=== PATIENT | female | born 1995 | race Caucasian/White ===

== ENCOUNTER 2016-11-03 18:30 | Emergency (ER) | payer SELFPAY ==
--- NOTE | 2016-11-03 18:33 | PDOC ---
History of Present Illness - General Chief Complaint: Sore Throat Stated Complaint: SORE THROAT, CAIN EAR PAIN, NASAL CONGESTION Time Seen by Provider: 11/03/16 18:33 - History of Present Illness Initial Comments: 11/03/16 18:55 Patient is a 20-year-old female with no past medical history presenting to the emergency department today complaining of a sore throat, bilateral ear pain, and congestion. Patient states her symptoms started yesterday. She admits to subjective fevers and chills. Admits to rhinorrhea, congestion, and difficulty swallowing. She denies cough, shortness of breath, and wheezing. She states that she took Motrin approximately 6 hours ago with minimal relief. She has not taken any medication for congestion. Past History - Travel Traveled outside of the country in the last 30 days: No Close contact w/someone who was outside of country & ill: No - Past Medical History Allergies/Adverse Reactions: Allergies Allergy/AdvReac Type Severity Reaction Status Date / Time No Known Allergies Allergy Verified 03/17/15 14:25 Home Medications: Ambulatory Orders Albuterol 0.083% Nebulizer Sun [Ventolin 0.083%] 1 neb NEB QID PRN 03/17/15 Fluticasone Prop 0.05% Nasal [Flonase -] 1 spray NS BID #1 spray 11/03/16 Asthma: Yes Cancer: No Cardiac Disorders: No Diabetes: No HTN: No Seizures: No Thyroid Disease: No - Surgical History Abdominal Surgery: Yes - Reproductive History (#): 1 Para: 0 Therapeutic (s) & number: No Spontaneous : 0 - Immunization History Immunization Up to Date: Yes - Psycho/Social/Smoking Cessation Hx Anxiety: No Suicidal Ideation: No Smoking Status: No Smoking History: Never smoked Have you smoked in the past 12 months: No Number of Cigarettes Smoked Daily: 0 Hx Alcohol Use: No Drug/Substance Use Hx: No Substance Use Type: None Hx Substance Use Treatment: No Review of Systems - Review of Systems Able to Perform ROS?: Yes Is the patient limited Welsh proficient: No Constitutional: Yes: Chills, Fever. No: Weakness HEENTM: Yes: Ear Pain, Nose Congestion, Throat Pain, Difficulty Swallowing. No : Blurred Vision, Recent change in vision, Throat Swelling, Mouth Swelling Respiratory: No: Cough, Shortness of Breath, Wheezing Cardiac (ROS): No: Chest Pain, Lightheadedness, Chest Tightness ABD/GI: No: Diarrhea, Nausea, Vomiting All Other Systems: Reviewed and Negative *Physical Exam - Physical Exam General Appearance: Yes: Nourished, Appropriately Dressed, Other (Sitting on exam bed AAOx3, breathing easily). No: Apparent Distress HEENT: positive: EOMI, PETRA, Pharyngeal Erythema, Tonsillar Erythema (Uvula midline, tonsils 1+ in size), Nasal Congestion, Rhinorrhea, Other (TM's retracted b/l). negative: Tonsillar Exudate, Sinus Tenderness, TM Erythema, Excessive drooling Neck: positive: Trachea midline, Normal Thyroid, Supple. negative: Tender, Rigid, Lymphadenopathy (R), Lymphadenopathy (L) Respiratory/Chest: positive: Lungs Clear, Normal Breath Sounds. negative: Respiratory Distress, Accessory Muscle Use Cardiovascular: positive: Regular Rhythm, Regular Rate, S1, S2 (present). negative: Murmur Integumentary: positive: Normal Color, Dry, Warm Neurologic: positive: director client II-XII NML intact, Fully Oriented, Alert, Normal Mood/ Affect, Normal Response, Motor Strength 5/5 Medical Decision Making - Medical Decision Making 11/03/16 19:03 Patient is a 20-year-old female with no past medical history presenting to the emergency department today complaining of a sore throat, bilateral ear pain, and congestion. On exam posterior pharynx is moderately erythematous. Centor criteria is to for lack of cough and fever. We will obtain strep swab at this time. We'll give Motrin for pain. Reevaluate. 11/03/16 19:10 Sign out given to tk William attending. Pending Rapid strep. Dispo after results come back. *DC/Admit/Observation/Transfer Diagnosis at time of Disposition: Upper respiratory infection, viral Acute pharyngitis Qualifiers: Pharyngitis/tonsillitis etiology: unspecified etiology Qualified Code(s): J02.9 - Acute pharyngitis, unspecified - Discharge Dispostion Disposition: HOME Condition at time of disposition: Stable - Prescriptions Prescriptions: Fluticasone Prop 0.05% Nasal [Flonase -] 1 spray NS BID #1 spray - Patient Instructions Printed Discharge Instructions: DI for Pharyngitis/Tonsillopharyngitis -- Adult Additional Instructions: rest; drink plenty of fluids no work tomorrow antihistamine/decongestant combination as needed[for example claritin-d] flonase 1 spray twice a day each nostril aleve/motrin/tylenol as needed return or see your doctor if symptoms worsen - Post Discharge Activity Work/School Note: Back to Work
[2016-11-03 18:37] VITALS: BP 121/75; PULSE 96; TEMP 98.1; BMI 27.9
[2016-11-03] MEDS ORDERED: IBUPROFEN 400 MG TABLET (FP) PO ONE (18:58)
[2016-11-03] MEDS ORDERED: IBUPROFEN 600 MG TABLET (FP) PO ONE (19:14)
--- NOTE | 2016-11-03 19:20 | PDOC ---
Attending Attestation - Resident Resident Name: Linda Parnell - ED Attending Attestation I have performed the following: I have examined & evaluated the patient, The case was reviewed & discussed with the resident, I agree w/resident's findings & plan, Exceptions are as noted
--- NOTE | 2016-11-03 19:48 | PDOC ---
*Physical Exam - Vital Signs Last Vital Signs Temp Pulse Resp BP Pulse Ox 98.1 F 96 H 18 121/75 99 11/03/16 18:30 11/03/16 18:30 11/03/16 18:30 11/03/16 18:30 11/03/16 18:30 ED Treatment Course - ADDITIONAL ORDERS Additional order review: 11/03/16 18:30 Group A Strep Rapid Antigen - Final Throat NEGATIVE FOR THE ANTIGEN OF BETA HEMOLYTIC STREP GROUP A - Medications Given in the ED: ED Medications Discontinued Medications Generic Name Dose Route Start Last Admin Trade Name Brianne PRN Reason Stop Dose Admin Ibuprofen 800 mg 11/03/16 18:58 11/03/16 19:15 Motrin - PO 11/03/16 18:59 800 mg ONCE ONE Administration Progress Note - Progress Note Progress Note: care of this patient received from and ROSCOE Parnell Quick strep test is negative. Patient discharged with instructions to rest (no work tomorrow; work documentation note provided for the patient). She will drink plenty of fluids. Prescription for Flonase 1 spray in each nostril twice a day transmitted to her pharmacy Also, patient can take ibuprofen/Aleve/acetaminophen as needed for pain or fever ; she should consider taking decongestant/antihistamine combination for nasal congestion if persistent. She should return to the emergency room if throat pain is severe or she develops high fever *DC/Admit/Observation/Transfer Diagnosis at time of Disposition: Upper respiratory infection, viral Acute pharyngitis Qualifiers: Pharyngitis/tonsillitis etiology: unspecified etiology Qualified Code(s): J02.9 - Acute pharyngitis, unspecified - Discharge Dispostion Disposition: HOME Condition at time of disposition: Stable - Prescriptions Prescriptions: Fluticasone Prop 0.05% Nasal [Flonase -] 1 spray NS BID #1 spray - Patient Instructions Printed Discharge Instructions: DI for Pharyngitis/Tonsillopharyngitis -- Adult Additional Instructions: rest; drink plenty of fluids no work tomorrow antihistamine/decongestant combination as needed[for example claritin-d] flonase 1 spray twice a day each nostril aleve/motrin/tylenol as needed return or see your doctor if symptoms worsen - Post Discharge Activity Work/School Note: Back to Work
== END 2016-11-03 19:50 | disposition home or self-care (01) ==
LOC: FER 18:30
DX: J06.9 Acute upper respiratory infection, unspecified (principal); J02.9 Acute pharyngitis, unspecified; J45.909 Unspecified asthma, uncomplicated
CPT/HCPCS: 87070; 87430; 99283-25

== ENCOUNTER 2018-09-06 19:13 | Emergency (ER) | payer OTHER ==
[2018-09-06 19:19] VITALS: BP 118/76; PULSE 88; TEMP 98.4; BMI 29.2
[2018-09-06 19:41] LABS: HCG,QUALITATIVE URINE Negative
[2018-09-06] MEDS ORDERED: SODIUM CHLORIDE 1,000 ML IV ONE (19:47)
[2018-09-06] MEDS ORDERED: ONDANSETRON 4 MG/2 ML VIAL IVPUSH ONE (19:47)
[2018-09-06] MEDS ORDERED: METOCLOPRAMIDE HCL INJECTION 10 MG/2 ML VIAL IVPUSH STA (19:48)
[2018-09-06] MEDS ORDERED: ACETAMINOPHEN 1000 MG/100 ML VIAL (NON FORMULARY) IVPB ONE (19:49)
--- NOTE | 2018-09-06 19:53 | PDOC ---
Documentation entered by Meir Batres SCRIBE, acting as scribe for Latosha Britt MD. Latosha Britt MD: This documentation has been prepared by the Gisel kumar Juan Manue, SCRIBE, under my direction and personally reviewed by me in its entirety. I confirm that the documentation accurately reflects all work, treatment, procedures, and medical decision making performed by me. History of Present Illness - General Chief Complaint: Pain, Acute Stated Complaint: ABD PAIN History Source: Patient Exam Limitations: No Limitations - History of Present Illness Initial Comments: 09/06/18 19:48 The patient is a 22 year old female presenting with her partner, who presents to the ED complaining of abdominal pain, nausea and vomiting since 11am this morning. She describes her pain as diffused throughout, rating it a 6/10 in severity. She denies any radiation or modifying factors. She notes that she ate ox tail soup at 9am in the morning prior to the symptoms. The patient denies chest pain, shortness of breath, headache and dizziness. Denies fever, chills, diarrhea or constipation. PAST MEDICAL HISTORY: no significant history PAST SURGICAL HISTORY: no significant history FAMILY HISTORY: no pertinent history SOCIAL HISTORY: Pt lives with family and is employed. MEDICATIONS: reviewed ALLERGIES: As per nursing notes General: No fevers or chills, no weakness, no weight loss HEENT: No change in vision. No sore throat,. No ear pain CardioVascular: No chest pain or shortness of breath Respiratory:No cough, or wheezing. Gastrointestinal: (+) Abdominal pain, nausea, vomiting. No diarrhea or constipation, No rectal bleeding Genitourinary: No dysuria, hematuria, or frequency Musculoskeletal: No joint or muscle pain or swelling Neurologic: No headache, vertigo, dizziness or loss of consciousness Psychiatric: nor depression Skin: No rashes or easy bruising Endocrine: no increased thirst or abnormal weight change Allergic: no skin or latex allergy All other systems reviewed and normal General: Well-nourished well-developed individual, no acute distress HEENT: Throat: Normal, tonsils normal, no erythema or exudate Neck: Supple, no meningeal signs, no lymphadenopathy Eyes::Pupils equal reactive and round, extraocular motion intact Chest: Nontender to palpation Cardiac: S1-S2 normal, regular rate and rhythm, no murmurs rubs or gallops Respiratory: Lungs clear to auscultation bilateral Abdomen: Diffused mild tenderness, slightly increased bowel sounds. Soft, nondistended. Extremities: Warm, dry, no cyanosis, clubbing, or edema Skin: No rashes Neuro: Alert and oriented x3, nonfocal exam, grossly intact, normal gait Psych: Normal mood and affect 09/06/18 19:52 Assessment and plan: This is a 22-year-old female who comes in with nausea vomiting and epigastric pain times several hours. Patient denies any fevers or diarrhea. Patient does have some mild tenderness in the epigastric area. Workup was initiated including CBC, comp, lipase. Patient was given antiemetics, Reglan and fluids. Will reassess and evaluate result of Patient's workup was unremarkable including a slightly decreased white count with no left shift. Patient etiology for symptoms is most likely viral. Antiemetics prescription sent to patient's pharmacy and patient discharged home 09/06/18 20:48 Past History - Past Medical History Allergies/Adverse Reactions: Allergies Allergy/AdvReac Type Severity Reaction Status Date / Time No Known Allergies Allergy Verified 03/17/15 14:25 Home Medications: Ambulatory Orders Ondansetron [Zofran Odt -] 4 mg SL TID #12 od.tablet 09/06/18 Asthma: Yes Cancer: No Cardiac Disorders: No COPD: No Diabetes: No HTN: No Seizures: No Thyroid Disease: No - Surgical History Abdominal Surgery: Yes - Reproductive History (#): 1 Para: 0 Therapeutic (s) & number: No Spontaneous : 0 - Immunization History Immunization Up to Date: Yes - Suicide/Smoking/Psychosocial Hx Smoking Status: No Smoking History: Never smoked Have you smoked in the past 12 months: No Number of Cigarettes Smoked Daily: 0 Hx Alcohol Use: No Drug/Substance Use Hx: No Substance Use Type: None Hx Substance Use Treatment: No *Physical Exam - Vital Signs Last Vital Signs Temp Pulse Resp BP Pulse Ox 98.4 F 88 16 118/76 99 09/06/18 19:15 09/06/18 19:15 09/06/18 19:15 09/06/18 19:15 09/06/18 19:15 ED Treatment Course - LABORATORY CBC & Chemistry Diagram: 09/06/18 20:20 09/06/18 20:20 - ADDITIONAL ORDERS Additional order review: Laboratory Results 09/06/18 19:20 Urine Color Yellow Urine Appearance Clear Urine pH 6.5 Urine Protein Negative Urine Glucose (UA) Negative Urine Ketones Trace Urine Blood Negative Urine Nitrite Negative Urine Bilirubin 1+ H Urine Urobilinogen 1.0 Ur Leukocyte Esterase Negative *DC/Admit/Observation/Transfer Diagnosis at time of Disposition: Epigastric pain Nausea and vomiting Qualifiers: Vomiting type: unspecified Vomiting Intractability: non-intractable Qualified Code(s): R11.2 - Nausea with vomiting, unspecified - Discharge Dispostion Disposition: HOME Condition at time of disposition: Stable Decision to Admit order: No - Prescriptions Prescriptions: Ondansetron [Zofran Odt -] 4 mg SL TID #12 od.tablet - Referrals - Patient Instructions Additional Instructions: Tylenol for the pain. Sent a prescription to your pharmacy for some medication for nausea and vomiting that you can take 3 times a day as needed. Clear liquids only for the next 6 hours.. After that if you have had no further vomiting you may have bananas, rice, applesauce, or toast. If no further vomiting for another 8 hours you may have regular food. If you vomit again then nothing to eat or drink for 2 hours. then start back with the clear liquids. Return to the emergency department immediately with ANY new, persistent or worsening symptoms. You MUST call and follow up with your doctor tomorrow if not better. Please make sure your doctor reviews the results of your emergency evaluation. - Post Discharge Activity - Attestations Scribe Attestion: 09/06/18 19:49 Documentation prepared by Meir Batres, acting as vice president medical affairs for Latosha Britt MD
[2018-09-06] MEDS ORDERED: ACETAMINOPHEN INJECTION 100 ML IVPB ONE (20:13)
[2018-09-06] MEDS ORDERED: ONDANSETRON 4 MG/2 ML VIAL ONE (20:13)
[2018-09-06] MEDS ORDERED: METOCLOPRAMIDE HCL INJECTION 10 MG/2 ML VIAL ONE (20:13)
[2018-09-06 20:34] LABS: BASO % 2.6 % (0-2.0); EOS % 0.3 % (0-4.5); HEMATOCRIT 40.9 % (32.4-45.2); HEMOGLOBIN 13.7 GM/dl (10.7-15.3); MCH 29.7 pg (25.7-33.7); MCHC 33.4 g/dl (32.0-36.0); MEAN CELL VOLUME 88.9 fl (80-96); MEAN PLT VOLUME 9.3 fl (7.5-11.1); MONO % 5.6 % (3.8-10.2); NEUT % 75.5 % (42.8-82.8); PLATELET COUNT 315 K/MM3 (134-434); RDW 11.9 % (11.6-15.6); WHITE BLOOD COUNT 3.9 K/mm3 (4.0-10.8)
[2018-09-06 20:48] LABS: BILIRUBIN,TOTAL 2.5 mg/dl (0.2-1); CALCIUM 8.8 mg/dl (8.5-10); CREATININE 0.7 mg/dl (0.55-1.3); POTASSIUM 3.7 mmol/L (3.5-5.1); TOT PROT 7.4 g/dl (6.4-8.2)
== END 2018-09-06 21:01 | disposition home or self-care (01) ==
LOC: FER 19:13
PROC: 3E033NZ Introduction of Analgesics, Hypnotics, Sedatives into Peripheral Vein, Percutaneous Approach (ICD-10-PCS; principal; 2018-09-06)
PROC: 3E0337Z Introduction of Electrolytic and Water Balance Substance into Peripheral Vein, Percutaneous Approach (ICD-10-PCS; 2018-09-06)
PROC: 3E033GC Introduction of Other Therapeutic Substance into Peripheral Vein, Percutaneous Approach (ICD-10-PCS; 2018-09-06)
DX: R10.13 Epigastric pain (principal); R11.2 Nausea with vomiting, unspecified
CPT/HCPCS: 36415; 80053; 81003; 83690; 84703; 85025; 99282-25; J0131; J7030

== ENCOUNTER 2018-09-16 08:39 | Emergency (ER) | payer BC, OTHER ==
[2018-09-16 08:43] VITALS: TEMP 98.4
[2018-09-16] MEDS ORDERED: SODIUM CHLORIDE 1,000 ML IV ONE (08:51)
[2018-09-16] MEDS ORDERED: FAMOTIDINE 20 MG/50 ML IVPB 20 MG in PREMIX 50 IVPB ONE (08:51)
--- NOTE | 2018-09-16 08:55 | PDOC ---
History of Present Illness - General Chief Complaint: Pain Stated Complaint: AMBOMINAL PAIN History Source: Patient Exam Limitations: No Limitations - History of Present Illness Travel History: No Initial Comments: 09/16/18 08:52 22y F no pmhx presents with abdominal pain since approx 3am. The pt had a bout of suspect gastroenteritis and came to the ED last week, symptmos resolved until 3am today when she developed moderate, sharp, nonradiationg epigasric pain without associated fever/chillls, n/v, diarrhea/melena/bpr, dysuria, vaginal discharge. Pt currently getting her menses. no sick contacts recent travel or new foods. pt did have some alcohol last night, but it is nothing out of the ordinary for her. no prior abd surgeries social hx: no etoh abuse, denies smoking Past History - Past Medical History Allergies/Adverse Reactions: Allergies Allergy/AdvReac Type Severity Reaction Status Date / Time No Known Allergies Allergy Verified 09/16/18 08:40 Home Medications: Ambulatory Orders NK [No Known Home Medication] 09/16/18 Asthma: Yes Cancer: No Cardiac Disorders: No COPD: No Diabetes: No HTN: No Seizures: No Thyroid Disease: No - Surgical History Abdominal Surgery: Yes - Reproductive History (#): 1 Para: 0 Therapeutic (s) & number: No Spontaneous : 0 - Immunization History Immunization Up to Date: Yes - Suicide/Smoking/Psychosocial Hx Smoking Status: No Smoking History: Never smoked Have you smoked in the past 12 months: No Number of Cigarettes Smoked Daily: 0 Hx Alcohol Use: Yes Drug/Substance Use Hx: No Substance Use Type: None Hx Substance Use Treatment: No Review of Systems - Review of Systems Able to Perform ROS?: Yes Comments:: 09/16/18 08:56 Constitutional - no reported Fever, Chills, HEENT: no reported vision changes, sore throat Respiratory: no reported cough, sob, hemoptysis Cardiac: no reported chest pain, palpitations, light headedness, leg swelling Abd/GI: +abd pain, no reported nausea, vomiting, blood per rectum, melena, diarrhea : no reported dysuria, frequency, discharge Musculskelatal - no reported back pain, joint swelling skin - no reported bruising, erythema, rash neurological: no reported headache, numbness, focal weakness, tingling, ataxia, hematologic: no reported easy bruising, easy bleeding GENERAL: The patient is awake, alert, and fully oriented, Nontoxic - in no acute distress. HEAD: Normocephalic, atraumatic. EYES: extraocular movements intact, sclera anicteric, conjunctiva clear. ENT: Normal voice, Moist mucous membranes. NECK: Normal range of motion, supple LUNGS: Breath sounds equal, clear to auscultation bilaterally. No wheezes, no rhonchi, no rales. HEART: Regular rate and rhythm, normal S1 and S2 without murmur, rub or gallop. ABDOMEN: Soft, mild lower abdominal tenderness, No guarding, no rebound. . No CVA tenderness EXTREMITIES: Normal range of motion, no edema. No clubbing or cyanosis. No cords, erythema, or tenderness. NEUROLOGICAL: No facial assymetry, Normal speech, PSYCH: Normal mood, normal affect. SKIN: Warm, Dry, normal turgor, *Physical Exam - Vital Signs Last Vital Signs Temp Pulse Resp BP Pulse Ox 98.4 F 62 18 110/66 99 09/16/18 08:40 09/16/18 08:40 09/16/18 08:40 09/16/18 08:40 09/16/18 08:40 ED Treatment Course - LABORATORY CBC & Chemistry Diagram: 09/16/18 09:09 09/16/18 09:09 Medical Decision Making - Medical Decision Making 09/16/18 09:06 22-year-old male history presenting with complaint of epigastric pain starting approximately 3 AM this morning described as nonradiating, sharp, without any associated symptoms on exam the patient is well-appearing, in no distress, she does have minimal epigastric tenderness with negative McBurney's or Joy's Differential for the patient's symptoms includes possible gastritis, consider menstrual cramping, UTI, less likely consider possible appendicitis or ovarian cyst or torsion. We'll obtain blood work, UA, Pepcid and Maalox We will reassess 09/16/18 11:55 labs UA/US reviewed - low lying iud noted - will have pt fu with sausage maker for this as outpatient. pt feeling improved ua c/w menses, no signs of UTI on reasessment, abd is soft nontender uncertain cause of her pain, possibly menstural cramping- but do not think it is ovarian cysts will dc with pmd/sausage maker fu return precautions were discussed I discussed the physical exam findings, ancillary test results and final diagnoses with the patient. I answered all of the patient's questions. The patient was satisfied with the care received and felt comfortable with the discharge plan and treatment plan. The patient will call their primary care physician within 24 hours to arrange follow-up and will return to the Emergency Department with any new, persistent or worsening symptoms. *DC/Admit/Observation/Transfer Diagnosis at time of Disposition: Suprapubic pain - Discharge Dispostion Disposition: HOME Condition at time of disposition: Improved Decision to Admit order: No - Referrals Referrals: Rufus Hoyt MD [Staff Physician] - - Patient Instructions Printed Discharge Instructions: DI for Abdominal Pain-Adult Additional Instructions: Return to the emergency department immediately with ANY new, persistent or worsening symptoms including worsening abdominal pain, fevers, inability to tolerate oral intake, chest pain, shortness of breath or any other concerns. Stay well hydrated. Your pelvic ultrasound revealed signs of a low lying IUD - please follow-up with your email marketing assistant for this. You MUST call and follow up with your doctor in 3- 4 days for further evaluation. Your emergency department visit is not complete without a followup with your doctor for reevaluation. Please make sure your doctor reviews the results of your emergency evaluation. Print Language: WOLOF - Post Discharge Activity
[2018-09-16] MEDS ORDERED: FAMOTIDINE 20 MG/50 ML IVPB 20 MG/50 ML MG IVPB ONE (09:06)
[2018-09-16] MEDS ORDERED: ONDANSETRON 4 MG/2 ML VIAL IVPB ONE (09:20)
[2018-09-16] MEDS ORDERED: ONDANSETRON 4 MG/2 ML VIAL ONE (09:21)
[2018-09-16 09:25] LABS: BASO % 1.7 % (0-2.0); EOS % 0.1 % (0-4.5); HEMATOCRIT 41.5 % (32.4-45.2); HEMOGLOBIN 13.5 GM/dl (10.7-15.3); LYMPH % 19.8 % (8-40); MCH 29.1 pg (25.7-33.7); MCHC 32.7 g/dl (32.0-36.0); MEAN CELL VOLUME 89.2 fl (80-96); MEAN PLT VOLUME 9.1 fl (7.5-11.1); MONO % 4.2 % (3.8-10.2); NEUT % 74.2 % (42.8-82.8); PLATELET COUNT 345 K/MM3 (134-434); RBC 4.65 M/mm3 (3.60-5.2); RDW 12.2 % (11.6-15.6); WHITE BLOOD COUNT 7.2 K/mm3 (4.0-10.8)
[2018-09-16 09:30] LABS: HCG,QUALITATIVE URINE Negative
[2018-09-16 09:33] LABS: AMORP URATES 2+ /hpf (NONE SEEN); EPITHELIAL CELLS FEW /hpf
[2018-09-16 09:35] LABS: BILIRUBIN,TOTAL 0.7 mg/dl (0.2-1); CREATININE 0.6 mg/dl (0.55-1.3); POTASSIUM 3.6 mmol/L (3.5-5.1); TOT PROT 7.9 g/dl (6.4-8.2)
[2018-09-16] MEDS ORDERED: INSULIN REGULAR HUMAN 100 UNITS/ML *VIAL SQ ONE (09:39)
[2018-09-16] MEDS ORDERED: KETOROLAC TROMETHAMINE 30 MG/1 ML VIAL IVPUSH ONE (09:53)
[2018-09-16] MEDS ORDERED: KETOROLAC TROMETHAMINE 30 MG/1 ML VIAL ONE (09:55)
[2018-09-16 12:12] VITALS: BP 104/66; PULSE 84
== END 2018-09-16 12:10 | disposition home or self-care (01) ==
LOC: FER 08:39
PROC: 3E033GC Introduction of Other Therapeutic Substance into Peripheral Vein, Percutaneous Approach (ICD-10-PCS; principal; 2018-09-16)
PROC: 3E0333Z Introduction of Anti-inflammatory into Peripheral Vein, Percutaneous Approach (ICD-10-PCS; 2018-09-16)
PROC: 3E0337Z Introduction of Electrolytic and Water Balance Substance into Peripheral Vein, Percutaneous Approach (ICD-10-PCS; 2018-09-16)
DX: R10.30 Lower abdominal pain, unspecified (principal); J45.909 Unspecified asthma, uncomplicated
CPT/HCPCS: 36415; 76830-TC; 80053; 81003; 81015; 83690; 84703; 85025; 87086; 99283-25; J7030

== ENCOUNTER 2021-04-25 22:40 | Emergency (ER) | payer BC, OTHER ==
[2021-04-25 22:54] VITALS: BP 146/96; PULSE 73; TEMP 98.7; BMI 28.3
[2021-04-28 01:06] LABS: SARS-CoV-2 NAA Detected (Not Detected)
== END 2021-04-25 23:01 | disposition home or self-care (01) ==
LOC: FER 22:40
DX: J06.9 Acute upper respiratory infection, unspecified (principal)
CPT/HCPCS: 87804; 87807; 99283-25; C9803; U0003; U0005